=== PATIENT | male | born 1990 | race Caucasian/White ===

== ENCOUNTER 2021-12-01 10:12 | Emergency (ER) | payer OTHER ==
[~2021-12-01] VITALS: Ht 185.4 cm; Wt 88.5 kg
[2021-12-01 10:21] VITALS: BP_SYST 131
--- NOTE | 2021-12-01 10:21 | NUR ---
Placed in room 2 . Placed on pvc monitor, blood pressure machine and pulse oximeter. To gown for exam. Side rails up.
--- NOTE | 2021-12-01 10:24 | NUR ---
ER DR. CARTWRIGHT AT THE BEDSIDE
--- NOTE | 2021-12-01 10:25 | NUR ---
PT CAME IN C/O LEFT SIDED CHEST PAIN AND LEFT ARM TINGLING WHILE DRIVING 30 MIN PRIOR TO ARRIVAL. STATES HIS PAIN HAS SUBSIDED BUT HE IS FEELING LIGHT HEADED AND NAUSEOUS. PT IS AMBULATORY, AAOX4, VSS, HX BIPOLAR D/O, NO OTHER KNOWN MEDICAL HX
--- NOTE | 2021-12-01 10:44 | NUR ---
# 20 gauge angiocath placed to LAC. Use of asceptic technique. Opsite placed over site. Blood return noted. Blood for lab drawn from site. Flushed with 10 cc of normal saline. No evidence of infiltration noted. Patient tolerated well.
--- NOTE | 2021-12-01 10:48 | NUR ---
PORTABLE X-RAY AT THE BEDSIDE
[2021-12-01 11:05] LABS: BASOPHILS % (AUTO) 0.6 % (0.0-2.0); EOSINOPHILS # (AUTO) 0.5 K/uL (0.0-0.4); EOSINOPHILS % (AUTO) 12.9 % (0.0-4.0); HEMATOCRIT 40.6 % (36-54); HEMOGLOBIN 13.6 g/dL (14.0-18.0); LYMPHOCYTES % (AUTO) 26.5 % (20.5-51.5); MEAN CORPUSCULAR HEMOGLOBIN 31 pg (27-31); MEAN CORPUSCULAR HGB CONC 34 % (32-36); MEAN CORPUSCULAR VOLUME 91 fL (79.0-98.0); MONOCYTES # (AUTO) 0.4 K/uL (0.0-1.0); NEUTROPHILS # (AUTO) 1.9 K/uL (1.8-7.7); PLATELET COUNT (AUTO) 217 K/uL (130-430); RED BLOOD CELL COUNT(AUTO) 4.45 MIL/uL (4.2-6.2); RED CELL DISTRIBUTION WIDTH 13.4 % (9.0-15.0); WHITE BLOOD COUNT (AUTO) 3.8 K/uL (4.8-10.8)
[2021-12-01 11:25] LABS: CALCIUM 9.4 mg/dL (8.4-11.0); CREATININE 0.75 mg/dL (0.55-1.30); POTASSIUM 3.9 mmol/L (3.5-5.1)
--- NOTE | 2021-12-01 11:30 | NUR ---
PT RESTING IN [facility], AAOX4, NO DISTRESS NOTED
[2021-12-01 11:32] LABS: ALBUMIN 2.7 g/dL (3.4-4.8); TOTAL BILIRUBIN 0.8 mg/dL (0.0-1.0)
== END 2021-12-01 12:34 | disposition home or self-care (01) ==
LOC: SED 10:12
DX: R07.89 Other chest pain (principal)
CPT/HCPCS: 36415; 71045; 80053; 84484; 85025; 93005; 99285